=== PATIENT | male | born 1995 ===

== ENCOUNTER → 2018-04-16 | Outpatient (REF) | payer OTHER ==
[2018-04-17 10:44] LABS: % NORMAL FORMS 12 % (>=4); IMMOTILITY 46 %; NON PROGRESSIVE MOTILITY (c) 5 %; PROGRESSIVE MOTILITY (a) 49 % (>=32); SEMEN APPEARANCE OPAQUE (OPAQUE); SEMEN VISCOSITY VISCOUS (LIQUID); SEMEN VOLUME 2.2 ml (4.0-5.0); SPERM CONCENTRATION 133.6 M/ml (>=15.0); SPERM# 293.9 M/Ejac (>=39); TOTAL FUNCTIONAL 37.9 M/Ejac.; TOTAL MOTILITY 54 % (>=40); TOTAL PROGRESSIVE SPERM 143.1 M/Ejac.; WBC CONCENTRATION <=1 M/ml (<=1 M/ml)
== END ==
LOC: M LAB REF 10:41
DX: Z31.41 Encounter for fertility testing (principal)
CPT/HCPCS: 89320

== ENCOUNTER → 2018-05-01 | Outpatient (REF) | payer OTHER ==
[2018-05-01 12:57] LABS: SEMEN APPEARANCE OPAQUE (OPAQUE); SEMEN VOLUME 2.5 ml (4.0-5.0)
[2018-05-01 12:58] LABS: % NORMAL FORMS 5 % (>=4); IMMOTILITY 68 %; NON PROGRESSIVE MOTILITY (c) 5 %; PROGRESSIVE MOTILITY (a) 27 % (>=32); SEMEN pH 8.5 (7.0-8.0); SPERM CONCENTRATION 156.7 M/ml (>=15.0); SPERM# 391.7 M/Ejac (>=39); TOTAL FUNCTIONAL 13.1 M/Ejac.; TOTAL MOTILITY 32 % (>=40); TOTAL PROGRESSIVE SPERM 106 M/Ejac.; WBC CONCENTRATION <=1 M/ml (<=1 M/ml)
[2018-05-01 12:59] LABS: SEMEN VISCOSITY LIQUID (LIQUID)
== END ==
LOC: M LAB REF 11:29
DX: N46.9 Male infertility, unspecified (principal)